=== PATIENT | female | born 1985 | race Caucasian/White ===

== ENCOUNTER 2016-06-10 17:14 | Emergency (ER) | payer BC ==
[~2016-06-10] VITALS: Ht 175.3 cm; Wt 84.1 kg
[~2016-06-10 17:14] MED LIST: ERYTHROMYCIN E3.5 GM OU; MOTRIN 600600 MG/TAB PO; PERCOCET 325 MG1 TA2 PO; PRENATAL1 TA1; ZOFRAN 4MG T4 MG/TAB PO
[2016-06-10] MEDS ORDERED: PRENATAL PO (17:18)
[2016-06-10 18:02] LABS: HEMATOCRIT 41.4 % (37.0-47.0); MEAN CELL VOLUME 91 fl (80.0-100.0); MEAN CORPUSCULAR HEMOGLOBIN 31 pg (27.0-31.0); MEAN CORPUSCULAR HGB CONC 34 g/dl (33.0-37.0); MEAN PLATELET VOLUME 11.5 fl (7.4-10.4); PLATELET COUNT 219 K/mm3 (130-400); RED BLOOD COUNT 4.55 M/mm3 (4.10-5.30); REDCELL DISTRIBUTION WIDTH-CV 12.7 % (11.5-14.5); WHITE BLOOD COUNT 13.9 K/mm3 (4.8-10.8)
[2016-06-10 18:05] LABS: ADD PATHOLOGY DIFF REVIEW NO
[2016-06-10 18:13] LABS: BAND 11 % (0-10); NEUTROPHILS 82 % (42.0-75.2); PLATELET ESTIMATE NORMAL (NORMAL); TOTAL CELLS COUNTED 100
[2016-06-10 18:18] LABS: ADJUSTED CALCIUM 9.3 mg/dL (8.4-10.2); ALBUMIN 3.8 gm/dL (3.5-5.0); BILIRUBIN,TOTAL 0.8 mg/dL (0.0-1.0); CALCIUM 9.1 mg/dL (8.4-10.2); CREATININE, serum 0.59 mg/dL (0.52-1.25); POTASSIUM 3.9 mmol/L (3.4-5.0); TOTAL PROTEIN 7.1 gm/dL (6.4-8.2)
[2016-06-10 18:34] LABS: PH 5 (5-8); URINE APPEARANCE Hazy; URINE BACTERIA None Seen /hpf; URINE BILIRUBIN Negative (NEGATIVE); URINE BLOOD Negative (NEGATIVE); URINE COLOR Yellow; URINE GLUCOSE Negative (NEGATIVE); URINE KETONE 2+ (NEGATIVE); URINE RBC 0-2 /hpf; URINE UROBILINOGEN Negative (NEGATIVE); URINE WBC 0-2 /hpf
[2016-06-10] MEDS ORDERED: PHENERGAN 25 TA25 MG PO (19:41)
[2016-06-10 19:48] VITALS: BP 106/66; PULSE 102
== END 2016-06-10 20:02 | disposition home or self-care (01) ==
LOC: COL.ER 17:14
PROVIDERS: Emergency Medicine
DX: O99.282 Endocrine, nutritional and metabolic diseases complicating pregnancy, second trimester (principal); E86.9 Volume depletion, unspecified; O21.9 Vomiting of pregnancy, unspecified; Z3A.14 14 weeks gestation of pregnancy
CPT/HCPCS: J2405; J2550; J7030; J7042

== ENCOUNTER 2016-10-26 15:07 | Inpatient (IN) | payer BC ==
[~2016-10-26] VITALS: Ht 175.3 cm; Wt 99.1 kg
[~2016-10-26 15:07] MED LIST changes: +PHENERGAN 25 TA25 MG PO; +PRENATAL PO
[2016-12-05] VITALS (20 sets, daily range): BP systolic 100–152; BP diastolic 58–73; PULSE 72–106; TEMP 97.7–98.3
[2016-12-05 06:36] LABS: BASO # 0.1 (0.0-0.2); BASO % 0.4 % (0.0-2.0); EOS % 0.1 % (0-4.0); GRAN # 8.3 (1.4-6.5); GRAN % 69.4 % (42.2-75.2); HEMATOCRIT 37.4 % (37.0-47.0); HEMOGLOBIN 12.8 g/dl (12.5-16.0); LYMPH # 2.6 (1.2-3.4); MEAN CELL VOLUME 92 fl (80.0-100.0); MEAN CORPUSCULAR HEMOGLOBIN 31 pg (27.0-31.0); MEAN CORPUSCULAR HGB CONC 34 g/dl (33.0-37.0); MEAN PLATELET VOLUME 11.8 fl (7.4-10.4); MONO # 0.8 (0.1-0.6); PLATELET COUNT 200 K/mm3 (130-400); RED BLOOD COUNT 4.07 M/mm3 (4.10-5.30); REDCELL DISTRIBUTION WIDTH-CV 13.5 % (11.5-14.5); WHITE BLOOD COUNT 11.9 K/mm3 (4.8-10.8)
[2016-12-06 02:45] VITALS: BP 102/62; PULSE 85; TEMP 98.1
[2016-12-06 07:18] LABS: HEMATOCRIT 35.9 % (37.0-47.0); HEMOGLOBIN 11.8 g/dl (12.5-16.0)
[2016-12-06 09:30] VITALS: BP 103/51; PULSE 89; TEMP 98.1
[2016-12-06 16:30] VITALS: BP 105/71; PULSE 91; TEMP 98.8
[2016-12-06 20:30] VITALS: BP 111/63; PULSE 84; TEMP 97.9
[2016-12-07 08:30] VITALS: BP 105/65; PULSE 87; TEMP 97.7
[2016-12-07] MEDS ORDERED: PERCOCET 325 MG1 TA2 PO (10:05)
[2016-12-07] MEDS ORDERED: IBU600 MG PO (10:05)
== END 2016-12-07 12:00 | disposition home or self-care (01) | DRG 765 ==
LOC: OB 12-05 05:35 → LDR 12-05 09:04 → EDSTATUS 12-07 08:47 → OB 12-07 12:00 → LDRO 12-07 15:06
PROVIDERS: Obstetrics & Gynecology
PROC: 10D00Z1 Extraction of Products of Conception, Low, Open Approach (ICD-10-PCS; principal; 2016-12-05)
DX: O34.211 Maternal care for low transverse scar from previous cesarean delivery (principal); O36.0130 Maternal care for anti-D [Rh] antibodies, third trimester, not applicable or unspecified; N85.8 Other specified noninflammatory disorders of uterus; Z3A.39 39 weeks gestation of pregnancy; Z37.0 Single live birth
CPT/HCPCS: J0690; J1885; J2175; J2270; J2370; J2405; J2791; J7120